=== PATIENT | male | born 1970 | race Caucasian/White ===

== ENCOUNTER → 2020-02-21 | Outpatient (CLI) | payer OTHER ==
[~2020-02-21] MED LIST: ASPI81CH PO; ATOR40TA PO; Bactrim Ds Tab1 EACH PO; CEPH500 PO; Cleocin HCl150 MG PO; IBUP600 PO; INSLI75/25 INJ; INSULANPEN INJ; INSULANPEN SC; LOSA50 PO; METF500 PO; MULVITMIND PO; NAPR220 PO; Novolog100 UNIT/2; RANI150 PO; TAMS.4ER PO; TOLT2 PO; TOLT4 PO; Triamcinolone A15 GM TOP
[2020-02-21 15:22] LABS: BASOPHILS ABSOLUTE AUTO 0.08 K/mm3 (0.00-0.23); BASOPHILS PERCENT AUTO 1 % (0-2); EOSINOPHILS ABSOLUTE AUTO 0.12 K/mm3 (0.00-0.68); EOSINOPHILS PERCENT AUTO 2 % (0-6); Hematocrit 44.1 % (37.0-53.0); Hemoglobin 14.6 g/dL (13.5-17.5); IMMATURE GRAN ABSOLUTE AUTO 0.01 K/mm3 (0.00-0.10); IMMATURE GRAN PERCENT AUTO 0 % (0-1); LYMPHOCYTES ABSOLUTE AUTO 1.45 K/mm3 (0.84-5.20); LYMPHOCYTES PERCENT AUTO 23 % (21-46); MONOCYTES ABSOLUTE AUTO 0.75 K/mm3 (0.16-1.47); MONOCYTES PERCENT AUTO 12 % (4-13); Mean Corpuscular HGB Conc 33.1 g/dL (31.5-36.5); Mean Corpuscular Volume 91 fL (80-100); NEUTROPHILS ABSOLUTE AUTO 3.96 K/mm3 (1.96-9.15); NEUTROPHILS PERCENT AUTO 62 % (41-73); Platelet Count 347 K/mm3 (150-400); RDW Coefficient Variation 11.7 % (11.7-14.2); RDW Standard Deviation 39.1 fL (35.1-46.3); Red Blood Cell Count 4.87 M/mm3 (4.30-5.90); White Blood Cell Count 6.37 K/mm3 (4.00-11.30)
[2020-02-21 16:04] LABS: C-REACTIVE PROTEIN, EXT RANGE <0.290 mg/dL (0.000-0.300)
[2020-02-21 16:06] LABS: CHOL/HDL RATIO 2.3; Cholesterol 138 mg/dL (50-200); HDL Cholesterol 61 mg/dL (>39); LDL/HDL RATIO 1.1; Low Density Lipoprotein Chol 64 mg/dL (0-110); Triglycerides 63 mg/dL (30-160); Very Low Density Lipoprot Chol 12 mg/dL (6-32)
[2020-02-22 08:10] LABS: COMPLEMENT C3, SERUM 74 mg/dL (82-167); COMPLEMENT C4, SERUM 18 mg/dL (14-44)
[2020-02-24 12:08] LABS: ANTI-DSDNA ANTIBODIES 2 IU/mL (0-9); RNP ANTIBODIES <0.2 AI (0.0-0.9); SJOGREN'S ANTI-SS-A <0.2 AI (0.0-0.9); SJOGREN'S ANTI-SS-B <0.2 AI (0.0-0.9); SMITH ANTIBODIES <0.2 AI (0.0-0.9)
[2020-02-24 13:12] LABS: Antinuclear Antibody Screen Negative (Negative)
[2020-02-24 14:29] LABS: Rheumatoid Factor, Serum Negative (Negative)
== END | disposition home or self-care (01) ==
LOC: LAB SHORT 10:40 → LAB 10:40
PROVIDERS: Family Medicine
DX: M19.049 Primary osteoarthritis, unspecified hand (principal); E78.5 Hyperlipidemia, unspecified
CPT/HCPCS: 80061; 85025; 85651; 86038; 86140; 86160; 86225; 86235; 86430

== ENCOUNTER 2021-01-15 08:37 | Day surgery (SDC) | payer OTHER ==
[~2021-01-15] VITALS: Ht 182.9 cm; Wt 114.6 kg
[2021-01-15] MEDS ORDERED: OMEP20ER PO (10:43)
--- NOTE | 2021-01-15 11:17 | NUR ---
01/15/21 1117 Tyra Luna EPI 0.15MG MIXED WITH BUPIVACAINE 0.5% TO FOR A SOLUTION OF BUPIVACAINE 0.5% W/EPI 1:200,000. MIXED IN OR BY RN AND INJECTED INTO OPSITE BY SURGEON DURING PROCEDURE
== END 2021-01-15 13:06 | disposition home or self-care (01) ==
LOC: ORSCSDS 08:37
PROVIDERS: Podiatrist Foot & Ankle Surgery
PROC: 0SGL04Z Fusion of Left Tarsometatarsal Joint with Internal Fixation Device, Open Approach (ICD-10-PCS; principal; 2021-01-15 10:15)
DX: M19.072 Primary osteoarthritis, left ankle and foot (principal); I10 Essential (primary) hypertension; Z87.891 Personal history of nicotine dependence; E11.9 Type 2 diabetes mellitus without complications; K21.9 Gastro-esophageal reflux disease without esophagitis; Z79.84 Long term (current) use of oral hypoglycemic drugs; Z79.899 Other long term (current) drug therapy
CPT/HCPCS: 82947; C1713; J0171; J0690; J1100; J1885; J2250; J2370; J2405; J2704; J3010

== ENCOUNTER 2021-07-05 07:45 | Day surgery (SDC) | payer OTHER ==
[~2021-07-05] VITALS: Ht 185.4 cm; Wt 257.6 kg
[~2021-07-05 07:45] MED LIST changes: -ASPI81CH PO; +OMEP20ER PO; +TADA10TA
[2021-07-05] MEDS ORDERED: ASPI81CH PO (08:24)
--- NOTE | 2021-07-05 09:14 | NUR ---
07/05/21 0914 Tonio Yanes BUPIVACAINE 0.5% 150 MLS MIXEFD W/ EPI 0.15ML PER ORDER TO MAKE BUPIVACAINE 0.5% 1:200,000 FOR INJECTION AT OPSITE BY DR. SALAZAR. 30MLS INJECTED.
--- NOTE | 2021-07-05 10:55 | NUR ---
07/05/21 1055 Kalpana Kent PERCOCET 5/325MG GIVEN PO PER DR ORDERS AT 1040.
== END 2021-07-05 11:35 | disposition home or self-care (01) ==
LOC: ORSCSDS 07:45
PROVIDERS: Podiatrist Foot & Ankle Surgery
PROC: 0SPG04Z Removal of Internal Fixation Device from Left Ankle Joint, Open Approach (ICD-10-PCS; principal; 2021-07-05 09:15)
PROC: 0SGL04Z Fusion of Left Tarsometatarsal Joint with Internal Fixation Device, Open Approach (ICD-10-PCS; principal; 2021-07-05 09:15)
DX: M19.072 Primary osteoarthritis, left ankle and foot (principal); I10 Essential (primary) hypertension; E11.9 Type 2 diabetes mellitus without complications; Z87.891 Personal history of nicotine dependence; F41.9 Anxiety disorder, unspecified; Z79.899 Other long term (current) drug therapy
CPT/HCPCS: 82947; A9270; C1713; C1769; J0171; J0690; J1100; J1885; J2250; J2405; J2704; J3010; J7120

== ENCOUNTER → 2021-09-09 | Outpatient (CLI) | payer OTHER ==
[~2021-09-09] MED LIST changes: +ASPI81CH PO
[2021-09-10 09:53] LABS: BASOPHILS ABSOLUTE AUTO 0.08 K/mm3 (0.00-0.23); BASOPHILS PERCENT AUTO 1 % (0-2); EOSINOPHILS ABSOLUTE AUTO 0.11 K/mm3 (0.00-0.68); EOSINOPHILS PERCENT AUTO 2 % (0-6); Hematocrit 40.3 % (37.0-53.0); Hemoglobin 13.2 g/dL (13.5-17.5); IMMATURE GRAN ABSOLUTE AUTO 0.01 K/mm3 (0.00-0.10); IMMATURE GRAN PERCENT AUTO 0 % (0-1); LYMPHOCYTES ABSOLUTE AUTO 1.57 K/mm3 (0.84-5.20); LYMPHOCYTES PERCENT AUTO 22 % (21-46); MONOCYTES PERCENT AUTO 10 % (4-13); Mean Corpuscular HGB 30.1 pg (26.0-34.0); Mean Corpuscular HGB Conc 32.8 g/dL (31.5-36.5); Mean Corpuscular Volume 92 fL (80-100); Mean Platelet Volume 11.2 fL (9.1-12.4); NEUTROPHILS ABSOLUTE AUTO 4.69 K/mm3 (1.96-9.15); NEUTROPHILS PERCENT AUTO 66 % (41-73); Platelet Count 347 K/mm3 (150-400); RDW Coefficient Variation 12.5 % (11.7-14.2); RDW Standard Deviation 42.5 fL (35.1-46.3); Red Blood Cell Count 4.38 M/mm3 (4.30-5.90); White Blood Cell Count 7.16 K/mm3 (4.00-11.30)
[2021-09-10 10:37] LABS: Alanine Aminotransfer (ALT/SGP 37 U/L (12-78); Albumin/Globulin Ratio 1.2 (0.8-1.8); Alk Phos 106 U/L (50-136); Anion Gap 6 mmol/L (6-16); Aspartate Aminotrans (AST/SGOT 22 U/L (12-37); Bilirubin, Total 1.3 mg/dL (0.1-1.0); Blood Urea Nitrogen 8 mg/dL (8-24); Bun/Creatinine Ratio 9.7 (12.0-20.0); CO2, Blood 24 mmol/L (21-32); Calcium, Blood 12.1 mg/dL (8.5-10.1); Chloride, Blood 108 mmol/L (98-108); Creatinine, Blood 0.82 mg/dL (0.60-1.20); Ferritin, Serum 20 ng/mL (26-388); Globulin, Blood 3.3 g/dL (2.2-4.0); Glomerular Filtration Rate >60 (60-); Glucose, Blood 73 mg/dL (70-99); Iron Serum 90 ug/dL (65-175); PSA, %Free 22.7 %; PSA, Free 0.222 ng/mL; Percent Saturation 20.5 % (20.0-50.0); Potassium, Blood 4.9 mmol/L (3.5-5.5); Prostate Specific Antigen 0.979 ng/mL (0.000-4.000); Sodium, Blood 138 mmol/L (136-145); Total Iron Binding Capacity 440 ug/dL (250-450); Total Protein, Blood 7.3 g/dL (6.4-8.2)
== END | disposition home or self-care (01) ==
LOC: LAB SHORT 17:10
PROVIDERS: Family Medicine
DX: I10 Essential (primary) hypertension (principal); N40.0 Benign prostatic hyperplasia without lower urinary tract symptoms; R68.89 Other general symptoms and signs
CPT/HCPCS: 80053; 82728; 83540; 83550; 84153; 84154; 84443; 85025

== ENCOUNTER 2023-01-10 14:56 | Day surgery (SDC) | payer OTHER ==
[~2023-01-10] VITALS: Ht 182.9 cm; Wt 104.6 kg
[2023-01-10] MEDS ORDERED: CYMBALTA20 M1 PO (15:11)
[2023-01-10] MEDS ORDERED: PREG100 PO (15:12)
[2023-01-10] MEDS ORDERED: FAMO20 PO (15:13)
[2023-01-10] MEDS ORDERED: ALBU90OI INH (15:14)
[2023-01-10] MEDS ORDERED: HYDHCL25 (15:14)
[2023-01-10] MEDS ORDERED: FLONASE ALLERG9.9 M2 (15:14)
[2023-01-10] MEDS ORDERED: IPRAT-ALBUT 0.5-3 ML (15:15)
[2023-01-10] MEDS ORDERED: Triamcinolone A15 G4 TOP (15:16)
[2023-01-10] MEDS ORDERED: SYMBICORT 160-4.6 GM (15:16)
[2023-01-10] MEDS ORDERED: DICLOFENAC SOD100 G1 TP (15:17)
--- NOTE | 2023-01-10 15:34 | NUR ---
01/10/23 1534 CHARY SALGADO INH ADMINISTERED PER ORDER FROM DR. DOAN. MED WOULD NOT TRANSFER OVER ON TO DEC SO UNABLE TO DOCUMENT ON DEC.
--- NOTE | 2023-01-10 16:41 | NUR ---
01/10/23 1641 TRAVIS CHAN PT LUNGS HAVE CONGESTION AT ADMIT AND AT DC; PT TOLD TO SEE PCP FOR ONGOING/ "YEARS" LUNG CONGESTION TAKING ALLERGY MEDICINE IN ADDITION TO HIS INHALERS/ NEBULIZER TXS AT HOME.
== END 2023-01-10 16:46 | disposition home or self-care (01) ==
LOC: ORSCSDS 14:56
PROVIDERS: Ophthalmology
PROC: 08DJ3ZZ Extraction of Right Lens, Percutaneous Approach (ICD-10-PCS; principal; 2023-01-10 16:00)
DX: E11.36 Type 2 diabetes mellitus with diabetic cataract (principal); H25.11 Age-related nuclear cataract, right eye; H21.81 Floppy iris syndrome; I10 Essential (primary) hypertension; F41.9 Anxiety disorder, unspecified; F32.A Depression, unspecified; K21.9 Gastro-esophageal reflux disease without esophagitis; E78.5 Hyperlipidemia, unspecified; E66.9 Obesity, unspecified; Z68.31 Body mass index [BMI] 31.0-31.9, adult; Z79.4 Long term (current) use of insulin; Z79.84 Long term (current) use of oral hypoglycemic drugs; Z79.899 Other long term (current) drug therapy
CPT/HCPCS: 82947; J2001; J2250; J3010; J3301; J7040; V2632

== ENCOUNTER 2023-01-17 14:47 | Day surgery (SDC) | payer OTHER ==
[~2023-01-17] VITALS: Ht 182.9 cm; Wt 108.3 kg
[~2023-01-17 14:47] MED LIST changes: +ALBU90OI INH; +CYMBALTA20 M1 PO; +DICLOFENAC SOD100 G1 TP; +FAMO20 PO; +FLONASE ALLERG9.9 M2; +HYDHCL25; +IPRAT-ALBUT 0.5-3 ML; +PREG100 PO; +SYMBICORT 160-4.6 GM; +Triamcinolone A15 G4 TOP
--- NOTE | 2023-01-17 15:25 | NUR ---
01/17/23 1525 Michelle Ventura TETRACAINE TO LEFT EYE AT 1531 PLEDGET TO LEFT EYE AT 1533 BY [facility].THX
--- NOTE | 2023-01-17 17:24 | NUR ---
01/17/231723 GilSterling hernandez PT HAD WHEEZES IN ALL LUNG LOBES UPON ARRIVAL IN STEP DOWN. HE WAS GIVEN A DUONEB TREATEMENT, PER DR. FREITAS'S ORDERS. FOLLOWING DUONEB LUNGS WERE CLEAR IN ALL LOBES.
== END 2023-01-17 17:20 | disposition home or self-care (01) ==
LOC: ORSCSDS 14:47
PROVIDERS: Ophthalmology
PROC: 08RK3JZ Replacement of Left Lens with Synthetic Substitute, Percutaneous Approach (ICD-10-PCS; principal; 2023-01-17 16:00)
DX: E11.36 Type 2 diabetes mellitus with diabetic cataract (principal); H25.12 Age-related nuclear cataract, left eye; Z96.1 Presence of intraocular lens; I10 Essential (primary) hypertension; J45.909 Unspecified asthma, uncomplicated; E11.9 Type 2 diabetes mellitus without complications; Z79.84 Long term (current) use of oral hypoglycemic drugs; Z79.899 Other long term (current) drug therapy
CPT/HCPCS: 82947; J2001; J2250; J3010; J3300; J7040; V2632

== ENCOUNTER 2023-04-06 09:00 | Day surgery (SDC) | payer OTHER ==
[~2023-04-06] VITALS: Ht 182.9 cm; Wt 110.4 kg
[~2023-04-06 09:00] MED LIST changes: +HYDCHL25 PO
[2023-04-06 09:31] VITALS: BP 157/92
--- NOTE | 2023-04-06 09:40 | NUR ---
[facility] in [facility] warming gown applied. Patient states colon prep results clear. History, Chart, Medications and Allergies reviewed before start of procedure.Lungs clear T/O to Auscultation. Patient confirms NPO status and agrees with scheduled surgery. Pre-Op teaching done. Pt verbalizes understanding. Patient States Post-Procedure ride home has been arranged. Patient reports completing Chlorhexadine shower X2 prior to admission to hospital.Patient states colon prep results clear.
--- NOTE | 2023-04-06 10:23 | NUR ---
04/06/23 1023 Sofia Bergeron History, Chart, Medications and Allergies reviewed before start of procedure. DR MC PROVIDING ANESTHESIA, SEE RECORDS
[2023-04-06 10:45] VITALS: BP 130/88
== END 2023-04-06 11:05 | disposition home or self-care (01) ==
LOC: ORSCMMR 09:00 → ORD 10:30 → ORSCMMR 10:30 → ORD 11:00 → ORSCMMR 11:05
PROVIDERS: Internal Medicine Gastroenterology
PROC: 0DBN8ZX Excision of Sigmoid Colon, Via Natural or Artificial Opening Endoscopic, Diagnostic (ICD-10-PCS; principal; 2023-04-06 10:30)
PROC: 0DB68ZX Excision of Stomach, Via Natural or Artificial Opening Endoscopic, Diagnostic (ICD-10-PCS; 2023-04-06 10:30)
PROC: 0DB48ZX Excision of Esophagogastric Junction, Via Natural or Artificial Opening Endoscopic, Diagnostic (ICD-10-PCS; 2023-04-06 10:30)
PROC: 0DB98ZX Excision of Duodenum, Via Natural or Artificial Opening Endoscopic, Diagnostic (ICD-10-PCS; 2023-04-06 10:30)
DX: D50.0 Iron deficiency anemia secondary to blood loss (chronic) (principal); D12.5 Benign neoplasm of sigmoid colon; I10 Essential (primary) hypertension; K29.70 Gastritis, unspecified, without bleeding; K21.9 Gastro-esophageal reflux disease without esophagitis; G47.33 Obstructive sleep apnea (adult) (pediatric); J44.9 Chronic obstructive pulmonary disease, unspecified; N32.89 Other specified disorders of bladder; E11.9 Type 2 diabetes mellitus without complications; F32.A Depression, unspecified; Z87.891 Personal history of nicotine dependence; Z79.82 Long term (current) use of aspirin; Z79.4 Long term (current) use of insulin; Z79.84 Long term (current) use of oral hypoglycemic drugs; Z79.899 Other long term (current) drug therapy
CPT/HCPCS: 82947; 88305; 88342; J2704; J7120

== ENCOUNTER 2023-06-08 09:55 | Day surgery (SDC) | payer OTHER ==
[~2023-06-08] VITALS: Ht 182.9 cm; Wt 111.7 kg
[~2023-06-08 09:55] MED LIST changes: +GABA300 PO
[2023-06-08 10:43] VITALS: BP 159/96
--- NOTE | 2023-06-08 11:07 | NUR ---
Ambulatory in Day Surgery. History, Chart, Medications and Allergies reviewed before start of procedure. Lungs clear T/O to Auscultation. Patient confirms NPO status and agrees with scheduled surgery. Pre-Op teaching done. Pt verbalizes understanding. Patient States Post-Procedure ride home has been arranged. PT BLOOD SUGAR OF [address] DE SOUZA AND DR VILLAFUERTE. DR VILLAFUERTE VERBAL ORDER TO GIVE HALF OF AN AMPULE OF D50. WILL RECHECK BLOOD SUGAR 15MIN AFTER ADMINISTRATION PER PROTOCOL.
--- NOTE | 2023-06-08 11:29 | NUR ---
REPORTED BLOOD SUGAR RECHECK OF [address] DE SOUZA AND DR VILLAFUERTE. DR DE SOUZA AND DR VILLAFUERTE INSTRUCT OKAY TO PROCEED WITH PROCEDURE.
--- NOTE | 2023-06-08 11:41 | NUR ---
06/08/23 1141 Jan Alvarenga History, Chart, Medications and Allergies reviewed before start of procedure. MONITOR INTACT WITH CONTINUOUS PULSE OXIMETRY, CONTINUOUS END TITAL CO2, AND INTERMITTENT BLOOD PRESSURE. 3-LEAD EKG REVIEWED WITH PHYSICIAN PRIOR TO START OF PROCEDURE. O2 VIA POM INTACT THROUGHOUT SEDATION/PROCEDURE.
[2023-06-08 12:16] VITALS: BP 106/55
[2023-06-08 12:30] VITALS: BP 127/93
--- NOTE | 2023-06-08 12:40 | NUR ---
PT ALERT AND TALKING p PROCEDURE. DENIES PAIN OR NAUSEA. MD AT BEDSIDE DISCUSSING FINDINGS c PATIENT. GIVEN COFEE AND YOGURT X 2, PT TOLERATES S DIFFICULTY. GIVEN DC INSTRUCTIONS. VERBALIZES AN UNDERSTANDING S QUESTIONS. IV DC'D, CATH INTACT AND PRESSURE DRESSING APPLIED. PT DRESSES SELF s ASSISTANACE. TO RESTROOM. OTD IN NAD VIA WC, ESCORTED TO SAFE RIDE HOME BY VOLUNTEERS.
== END 2023-06-08 12:50 | disposition home or self-care (01) ==
LOC: ORSCMMR 09:55 → ORD 11:15 → ORSCMMR 12:50
PROVIDERS: Internal Medicine Gastroenterology
PROC: 0DBM8ZX Excision of Descending Colon, Via Natural or Artificial Opening Endoscopic, Diagnostic (ICD-10-PCS; principal; 2023-06-08 11:15)
PROC: 0DBL8ZX Excision of Transverse Colon, Via Natural or Artificial Opening Endoscopic, Diagnostic (ICD-10-PCS; principal; 2023-06-08 11:15)
DX: D50.9 Iron deficiency anemia, unspecified (principal); K63.5 Polyp of colon; G47.33 Obstructive sleep apnea (adult) (pediatric); E11.9 Type 2 diabetes mellitus without complications; J45.909 Unspecified asthma, uncomplicated; Z79.899 Other long term (current) drug therapy
CPT/HCPCS: 82947; 88305; J2704; J7120

== ENCOUNTER → 2023-10-20 | Outpatient (CLI) | payer MEDICARE, OTHER ==
[2023-10-20 18:59] LABS: Percent Saturation 52.8 % (20.0-50.0)
== END ==
LOC: LAB 16:06 → LAB SHORT 16:06
PROVIDERS: Internal Medicine Hematology & Oncology
DX: D50.0 Iron deficiency anemia secondary to blood loss (chronic) (principal)
CPT/HCPCS: 82728; 83540; 83550

== ENCOUNTER 2024-05-03 07:22 | Day surgery (SDC) | payer MEDICARE, OTHER ==
[~2024-05-03] VITALS: Ht 182.9 cm; Wt 113.2 kg
[~2024-05-03 07:22] MED LIST changes: +ALLEGRA ALLERGY60 MG PO; +CENTRUM SILVER1 EAC2; +CENTRUM SILVER1 EAC2 PO; +CINA30 PO; +FINA5 PO; +FURO20 PO; +HYDHCL25 PO; +JARDIANCE10 MG PO; +MONT10T PO; +Prednisone10 MG PO
[2024-05-03] MEDS ORDERED: Lactated Ringer's 1,000 ML IV ONE ×2 (07:41→12:06)
[2024-05-03] MEDS ORDERED: HUMALOG KW100 UNIT/1 (11:19)
[2024-05-03] MEDS ORDERED: Triamcinolone A15 GM (11:20)
[2024-05-03] MEDS ORDERED: DICLOFENAC SOD100 GM (11:20)
[2024-05-03] MEDS ORDERED: ZYRTEC10 M1 (11:22)
[2024-05-03] MEDS ORDERED: NOVOLOG FL100 UNIT/2 (11:23)
[2024-05-03] MEDS ORDERED: propofoL 50 ML IV ONE (12:21)
[2024-05-03 13:16] VITALS: BP 154/97
== END 2024-05-03 13:12 | disposition home or self-care (01) ==
LOC: ORSCSDS 07:22
PROVIDERS: Internal Medicine Gastroenterology
PROC: 0DJ08ZZ Inspection of Upper Intestinal Tract, Via Natural or Artificial Opening Endoscopic (ICD-10-PCS; principal; 2024-05-03 11:30)
DX: R13.10 Dysphagia, unspecified (principal); R93.3 Abnormal findings on diagnostic imaging of other parts of digestive tract; J44.9 Chronic obstructive pulmonary disease, unspecified; Z87.891 Personal history of nicotine dependence; I12.9 Hypertensive chronic kidney disease with stage 1 through stage 4 chronic kidney disease, or unspecified chronic kidney disease; E10.22 Type 1 diabetes mellitus with diabetic chronic kidney disease; N18.9 Chronic kidney disease, unspecified; Z79.899 Other long term (current) drug therapy
CPT/HCPCS: 82947; J2704; J7120

== ENCOUNTER → 2024-07-16 | Outpatient (CLI) | payer MEDICARE, OTHER ==
[~2024-07-16] MED LIST changes: +DICLOFENAC SOD100 GM; +HUMALOG KW100 UNIT/1; +NOVOLOG FL100 UNIT/2; +Triamcinolone A15 GM; +ZYRTEC10 M1
[2024-07-16 16:52] LABS: BASOPHILS ABSOLUTE AUTO 0.14 K/mm3 (0.00-0.23); BASOPHILS PERCENT AUTO 1 % (0-2); EOSINOPHILS ABSOLUTE AUTO 0.22 K/mm3 (0.00-0.68); EOSINOPHILS PERCENT AUTO 2 % (0-6); Hematocrit 28.1 % (37.0-53.0); IMMATURE GRAN ABSOLUTE AUTO 0.04 K/mm3 (0.00-0.10); IMMATURE GRAN PERCENT AUTO 0 % (0-1); LYMPHOCYTES ABSOLUTE AUTO 1.49 K/mm3 (0.84-5.20); LYMPHOCYTES PERCENT AUTO 15 % (21-46); MONOCYTES ABSOLUTE AUTO 0.74 K/mm3 (0.16-1.47); MONOCYTES PERCENT AUTO 7 % (4-13); Mean Corpuscular HGB 29.2 pg (26.0-34.0); Mean Corpuscular Volume 91 fL (80-100); Mean Platelet Volume 10.8 fL (9.1-12.4); NEUTROPHILS ABSOLUTE AUTO 7.41 K/mm3 (1.96-9.15); NEUTROPHILS PERCENT AUTO 74 % (41-73); Platelet Count 352 K/mm3 (150-400); RDW Coefficient Variation 12.8 % (11.7-14.2); RDW Standard Deviation 42.4 fL (35.1-46.3); Red Blood Cell Count 3.08 M/mm3 (4.30-5.90); White Blood Cell Count 10.04 K/mm3 (4.00-11.30)
[2024-07-16 17:01] LABS: Albumin, Blood 3.2 g/dL (3.4-5.0); Anion Gap 16 mmol/L (3-11); Blood Urea Nitrogen 26 mg/dL (8-24); Bun/Creatinine Ratio 7.6 (12.0-20.0); CO2, Blood 24 mmol/L (21-32); Calcium, Blood 7.4 mg/dL (8.5-10.1); Chloride, Blood 104 mmol/L (98-108); Creatinine, Blood 3.42 mg/dL (0.60-1.20); Glomerular Filtration Rate 20 (60-); Glucose, Blood 258 mg/dL (70-99); Magnesium, Blood 1.2 mg/dL (1.6-2.4); Phosphorus, Blood 3.6 mg/dL (2.5-4.9); Potassium, Blood 4.2 mmol/L (3.5-5.5); Sodium, Blood 140 mmol/L (136-145)
== END | disposition home or self-care (01) ==
LOC: LAB 16:44 → LAB SHORT 16:44
PROVIDERS: Chiropractor
DX: N18.9 Chronic kidney disease, unspecified (principal); R30.0 Dysuria
CPT/HCPCS: 80069; 83735; 85025; 87086

== ENCOUNTER → 2025-04-10 | Outpatient (CLI) | payer MEDICARE, OTHER ==
[2025-04-10 20:24] LABS: Creatinine, Urine Random 27.4 mg/dL (27.00-270.00)
[2025-04-10 20:27] LABS: Microalb/Creat Ratio UR, Rand 241.241 mg/g (0.000-30.000); Microalbumin, Random Urine 66.1 mg/L (0.000-20.000)
== END | disposition home or self-care (01) ==
LOC: LAB 17:29 → LAB SHORT 17:29
PROVIDERS: Family Medicine
DX: E11.65 Type 2 diabetes mellitus with hyperglycemia (principal)
CPT/HCPCS: 82043; 82570